=== PATIENT | male | born 1990 | race African-American/Black ===

== ENCOUNTER 2018-01-27 17:28 | Emergency (ER) | payer SELFPAY ==
[~2018-01-27] VITALS: Ht 180.3 cm; Wt 72.0 kg
[2018-01-27 18:20] VITALS: BP 107/77
[2018-01-27] MEDS ORDERED: IBUPROFEN 600MG TABLET PO STA (18:25)
== END 2018-01-27 18:48 | disposition home or self-care (01) ==
LOC: ER 17:28
DX: K02.9 Dental caries, unspecified (principal); F12.10 Cannabis abuse, uncomplicated; Z88.9 Allergy status to unspecified drugs, medicaments and biological substances
CPT/HCPCS: 99283